=== PATIENT | female | born 1940 | race Caucasian/White ===

== ENCOUNTER 2017-04-04 16:26 | Emergency (ER) | payer MEDICARE, BC ==
[2017-04-04 17:33] VITALS: BP 122/65
--- NOTE | 2017-04-04 18:10 | EDM.PDOC ---
ED HPI GENERAL MEDICAL PROBLEM - General Stated Complaint: LUMP ON ELBOW NOT AN INJURY Time Seen by Provider: 04/04/17 17:45 Source of Information: Reports: Patient, Family History Limitations: Reports: No Limitations - History of Present Illness INITIAL COMMENTS - FREE TEXT/NARRATIVE: 76-year-old female developed a slightly erythematous palpable lump in the antecubital area of her left arm over the past 12 hours. She is undergoing chemotherapy through a port for pancreatic cancer, and gets fairly frequent blood draws from the arms but usually is the right arm. She has no fevers or chills. It is not significantly tender unless palpated, it is not warm. She's had no recent trauma. Onset: Gradual (Developed overnight) Location: Reports: Upper Extremity, Left Severity: Mild Associated Symptoms: Reports: No Other Symptoms Left Elbow Pain Score (Numeric/FACES): 1 - Related Data Allergies Allergy/AdvReac Type Severity Reaction Status Date / Time No Known Allergies Allergy Verified 04/04/17 17:33 Home Meds: Home Meds L.acidoph,Paracasei, B.lactis [Probiotic] 1 cap PO DAILY 02/23/16 [History] Cholecalciferol (Vitamin D3) [Vitamin D3] 2,000 unit PO DAILY 04/16/16 [History] Prochlorperazine [Compazine] 10 mg PO DAILY 04/21/16 [History] Capecitabine [Xeloda] 1,000 mg PO BID 04/04/17 [History] Gemcitabine [Gemzar] 200 mg IV ASDIRECTED 04/04/17 [History] LORazepam 0.5 mg PO ASDIRECTED PRN 04/04/17 [History] Past Medical History HEENT History: Reports: Cataract, Hard of Hearing, Impaired Vision Cardiovascular History: Reports: Hypertension Respiratory History: Reports: Other (See Below) Other Respiratory History: "spots" Gastrointestinal History: Reports: Cholelithiasis Other Gastrointestinal History: bezoar Genitourinary History: Reports: Renal Disease [employer] History: Reports: Musculoskeletal History: Reports: Gout Psychiatric History: Reports: Anxiety Oncologic (Cancer) History: Reports: Pancreatic Other Oncologic History: name unknown to pt. 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 Musculoskeletal Surgical History: Reports: None Social & Family History - Family History Family Medical History: Noncontributory - Tobacco Use Smoking Status *Q: Never Smoker Second Hand Smoke Exposure: No - Caffeine Use Caffeine Use: Reports: Coffee - Alcohol Use Days Per Week of Alcohol Use: 0 - Recreational Drug Use Recreational Drug Use: No ED ROS GENERAL - Review of Systems Review Of Systems: See Below Constitutional: Denies: Fever, Chills, Malaise Respiratory: Denies: Shortness of Breath Cardiovascular: Denies: Chest Pain GI/Abdominal: Denies: Abdominal Pain, Nausea, Vomiting Skin: Reports: Erythema (A small amount of erythema over the tender area) ED EXAM, GENERAL - Physical Exam Exam: See Below Exam Limited By: No Limitations General Appearance: Alert, No Apparent Distress Respiratory/Chest: No Respiratory Distress, Lungs Clear Extremities: Other (Exam is otherwise limited to the upper extremities. The right elbow and antecubital areas normal. On the left there is no elbow tenderness or effusion. She does have a palpable firm tender nodular lesion just under the skin in the antecubital area, slightly erythematous.) Course - Vital Signs Last Recorded V/S: Last Vital Signs Temp 97.9 F 04/04/17 17:28 Pulse 76 04/04/17 17:28 Resp 18 04/04/17 17:28 BP 122/65 04/04/17 17:28 Pulse Ox 100 04/04/17 17:28 - Re-Assessments/Exams Free Text/Narrative Re-Assessment/Exam: 04/04/17 18:09 This is most likely a local area of thrombophlebitis possibly from recent cross. Because of the chemotherapy and possible bacteria seeding from blood draws a 5 day course of cephalexin will be given and she'll take Aleve twice daily. I encouraged her to put warm compresses on the area and recheck in 2-3 days if not improving satisfactorily, she can return sooner if worsening. Departure - Departure Time of Disposition: 18:18 Disposition: Home, Self-Care 01 Condition: Good Clinical Impression: Thrombophlebitis of arm - Discharge Information Instructions: Edema Referrals: Bhat,Scott A, MD [Primary Care Provider] - Forms: ED Department Discharge Care Plan Goals: Warm compresses to the area may help, Aleve twice daily should also be beneficial. Take antibiotic 3 times daily for at least 5 days and recheck in 2- 3 days if not improving.
== END 2017-04-04 18:24 | disposition home or self-care (01) ==
LOC: JP.ED 16:26
DX: I80.8 Phlebitis and thrombophlebitis of other sites (principal); I10 Essential (primary) hypertension; Z85.07 Personal history of malignant neoplasm of pancreas; Z98.49 Cataract extraction status, unspecified eye; Z98.890 Other specified postprocedural states; Z79.899 Other long term (current) drug therapy
CPT/HCPCS: 99283